=== PATIENT | female | born 1985 | race Caucasian/White ===

== ENCOUNTER → 2017-05-22 | Outpatient (CLI) | payer BC ==
--- NOTE | 2017-05-23 14:32 | REP ---
Clinical: Pain times 1 week . Technique: Internal rotation, external rotation, and Y view left shoulder . Findings: No acute fracture or dislocation. The acromioclavicular and glenohumeral joints are intact. No periarticular calcifications or degenerative changes are appreciated. Sub acromial space is normal. Surrounding soft tissues are unremarkable. Impression: Normal age-appropriate left shoulder radiographs. Signed by Justino Angeles MD 05/22/2017 11:45 P
== END ==
LOC: M WUC 11:09
PROVIDERS: ATTEND Physician Assistant
DX: S46.012A Strain of muscle(s) and tendon(s) of the rotator cuff of left shoulder, initial encounter (principal); X58.XXXA Exposure to other specified factors, initial encounter; Y92.89 Other specified places as the place of occurrence of the external cause; Y93.89 Activity, other specified; Y99.8 Other external cause status

== ENCOUNTER → 2017-06-21 | Outpatient (CLI) | payer BC ==
[2017-06-21 16:59] LABS: THYROID STIMULATING HORMONE 0.867 uIU/ML (0.358-3.740)
[2017-06-21 16:59] LABS: FREE T4 0.91 NG/DL (0.76-1.46)
[2017-06-21 17:13] LABS: FOLLICLE STIMULATING HORMONE 7.7 mIU/mL; LUTEINIZING HORMONE 3.9 mIU/mL
[2017-06-26 00:06] LABS: TESTOSTERONE PEDIATRIC 13 ng/dL (.)
[2017-06-27 14:13] LABS: 17 HYDROXY PROGESTERONE 21 ng/dL (.); DEHYDROEPIANDROSTERONE SULFATE 163.1 ug/dL (84.8-378.0); ESTROGENS TOTAL 94 pg/mL (.)
== END ==
LOC: M WUC 15:09
DX: N92.6 Irregular menstruation, unspecified (principal)
CPT/HCPCS: 83001